=== PATIENT | female | born 1975 | race African-American/Black ===

== ENCOUNTER 2016-08-11 20:35 | Emergency (ER) | payer OTHER ==
[2016-08-11 20:50] VITALS: BP 138/78; PULSE 87; TEMP 98.5; BMI 56.2
[2016-08-11] MEDS ORDERED: KETOROLAC TROMETHAMINE 60 MG/2 ML VIAL ONE (21:13)
[2016-08-11] MEDS ORDERED: CLINDAMYCIN HCL 300 MG CAPSULE PO ONE (21:13)
--- NOTE | 2016-08-11 21:13 | PDOC ---
History of Present Illness - General History Source: Patient Exam Limitations: No Limitations - History of Present Illness Initial Comments: 08/11/16 21:13 A portion of this note was documented by scribe services under my direction. I have reviewed the details of the note, within reason, and agree with the documentation. The case summary and management plan written by me. Assessment and plan: This is a 40-year-old female who comes in complaining of a possible dental infection. Patient has a fractured tooth that Most likely has seeded the periodontal space and there is a early periodontal infection. There was no palpable collection. Patient started on clindamycin for the infection. Patient given Toradol for the pain. Patient has a dentist she will call in the morning and follow-up. <Avery Cruz I - Last Filed: 08/11/16 21:19> - General History Source: Patient Exam Limitations: No Limitations - History of Present Illness Initial Comments: 08/11/16 21:21 The patient is a 40 year old female, with significant past medical history of morbid obesity, HTN, rheumatoid arthritis, borderline DM, lower extremity edema , who presents today complaining of swelling in the right gum line near her 2nd molar. The patient states that she has a cracked tooth near the area of swelling. She wanted to be sure that she did not have an abscess that needed draining. She states that the swelling is painful and irritating. Denies fever, chills, nausea, vomiting. Allergies: none reported ROS General: No fevers or chills, no weakness, no weight loss HEENT: +swelling to the right gum line near the 2nd molar. No change in vision. No sore throat,. No ear pain CardioVascular: No chest pain or shortness of breath Respiratory:No cough, or wheezing. Gastrointestinal: no nausea, vomiting, diarrhea or constipation, No rectal bleeding Genitourinary: No dysuria, hematuria, or frequency Musculoskeletal: No joint or muscle pain or swelling Neurologic: No headache, vertigo, dizziness or loss of consciousness Psychiatric: nor depression Skin: No rashes or easy bruising Endocrine: no increased thirst or abnormal weight change Allergic: no skin or latex allergy All other systems reviewed and normal PE GENERAL: The patient is awake, alert, and fully oriented, in no acute distress. HEAD: Normal with no signs of trauma. EYES: Pupils equal, round and reactive to light, extraocular movements intact, sclera anicteric, conjunctiva clear. MOUTH: Periodontal infection consisting of tenderness and erythema, but no palpable collection lateral to the 2nd molar. There is a fracture of the 2nd molar EXTREMITIES: Normal range of motion, no edema. NEUROLOGICAL: Normal speech, normal gait. PSYCH: Normal mood, normal affect. SKIN: Warm, Dry, normal turgor, no rashes or lesions noted. <Vivian Conner - Last Filed: 08/11/16 21:21> - General Chief Complaint: Pain, Acute Stated Complaint: POSSIBLE TOOTH ABCESS Time Seen by Provider: 08/11/16 20:36 Past History - Past Medical History Diabetes: Yes HTN: Yes Suicide Attempt (Hx): No Other medical history: RA - Surgical History Orthopedic Surgery: Yes (right knee arthroscopy) - Psycho/Social/Smoking Cessation Hx Anxiety: No Suicidal Ideation: No Smoking Status: No Smoking History: Never smoked Have you smoked in the past 12 months: No Number of Cigarettes Smoked Daily: 0 Information on smoking cessation initiated: No Hx Alcohol Use: No Drug/Substance Use Hx: No Substance Use Type: None Hx Substance Use Treatment: No <Avery Cruz I - Last Filed: 08/11/16 21:19> <Vivian Conner - Last Filed: 08/11/16 21:21> - Past Medical History Allergies/Adverse Reactions: Allergies Allergy/AdvReac Type Severity Reaction Status Date / Time No Known Allergies Allergy Verified 08/11/16 20:37 Home Medications: Ambulatory Orders Furosemide [Lasix -] 80 mg PO DAILY 11/10/15 Losartan Potassium 50 mg PO DAILY 11/10/15 Oxycodone HCl/Acetaminophen [Percocet 5-325 mg Tablet -] 1 tab PO Q6H PRN #10 tablet MDD 4 11/10/15 Sitagliptin Phos/Metformin HCl [Janumet 50-1,000 mg Tablet] 1 each PO DAILY *Physical Exam - Vital Signs Last Vital Signs Temp Pulse Resp BP Pulse Ox 98.5 F 87 16 138/78 99 08/11/16 20:42 08/11/16 20:42 08/11/16 20:42 08/11/16 20:42 08/11/16 20:42 <Avery Cruz I - Last Filed: 08/11/16 21:19> - Vital Signs Last Vital Signs Temp Pulse Resp BP Pulse Ox 98.5 F 87 16 138/78 99 08/11/16 20:42 08/11/16 20:42 08/11/16 20:42 08/11/16 20:42 08/11/16 20:42 <Vivian Conner - Last Filed: 08/11/16 21:21> ED Treatment Course - Medications Given in the ED: ED Medications Discontinued Medications Generic Name Dose Route Start Last Admin Trade Name Jessica PRN Reason Stop Dose Admin Clindamycin HCl 600 mg 08/11/16 21:13 08/11/16 21:19 Cleocin - PO 08/11/16 21:14 600 mg ONCE ONE Administration Ketorolac Tromethamine 60 mg 08/11/16 21:15 08/11/16 21:19 Toradol Injection - IM 08/11/16 21:16 60 mg ONCE ONE Administration <Vivian Conner - Last Filed: 08/11/16 21:21> *DC/Admit/Observation/Transfer - Discharge Dispostion Admit: No <Avery Cruz I - Last Filed: 08/11/16 21:19> - Attestations Scribe Attestion: 08/11/16 21:21 Documentation prepared by SHANNON Navarro, acting as medical pathologist for Avery Cruz MD. <Vivian Conner - Last Filed: 08/11/16 21:21> Diagnosis at time of Disposition: Dental infection, Tooth fracture - Discharge Dispostion Disposition: HOME Condition at time of disposition: Stable - Patient Instructions Printed Discharge Instructions: DI for Tooth Decay Additional Instructions: For the pain you can take naproxen 2 tablets twice a day with food as needed. For the infection take clindamycin 1 tablet twice a day with food don't take on an empty stomach. Call your dentist in the morning and get an appointment to follow-up with your dentist as soon as possible. Return to the emergency department immediately with ANY new, persistent or worsening symptoms. Continue any medications as previously prescribed by your physician. You should follow up with your primary doctor as soon as possible regarding today's emergency department visit. . Please make sure your doctor reviews the results of your emergency evaluation. Thank you for coming to the Emergency Department today for your care. It was a pleasure to see you today. Please note that your evaluation is INCOMPLETE until you follow-up with your doctor.
[2016-08-11] MEDS ORDERED: CLINDAMYCIN HCL 150 MG CAPSULE (FP) ONE (21:14)
[2016-08-11] MEDS ORDERED: KETOROLAC TROMETHAMINE 60 MG/2 ML VIAL IM ONE (21:15)
== END 2016-08-11 21:21 | disposition home or self-care (01) ==
LOC: FER 20:35
PROC: 3E0233Z Introduction of Anti-inflammatory into Muscle, Percutaneous Approach (ICD-10-PCS; principal; 2016-08-11)
DX: K08.89 Other specified disorders of teeth and supporting structures (principal); K04.7 Periapical abscess without sinus
CPT/HCPCS: 96372; 99281-25